=== PATIENT | female | born 1975 | race African-American/Black ===

== ENCOUNTER 2016-11-28 16:11 | Emergency (ER) | payer OTHER ==
[~2016-11-28] VITALS: Ht 157.5 cm; Wt 82.4 kg
[2016-11-28 16:46] LABS: EOSINOPHIL (%) 2.7 % (0-5); EOSINOPHIL COUNT 0.2 K/uL (0-0.3); HEMATOCRIT 34.6 % (36.0-46.0); IMMATURE GRANULOCYTE (%) 0.2 % (0.0-0.7); INSTRUMENT ABS NEUTROPHIL CT 2.7 K/uL; LYMPHOCYTE COUNT 2.1 K/uL (1.0-2.8); MCH 30.3 PG (29.0-34.0); MCHC 34.4 G/DL (30.0-36.0); MEAN PLAT.VOLUME 9.3 uM^3 (9.5-12.4); MONOCYTE COUNT 0.6 K/uL (0-0.8); NEUTROPHIL (%) 48.7 % (45-76); NEUTROPHIL COUNT 2.7 K/uL (1.8-6.4); PLATELET COUNT 311 K/uL (156-360); RBC DIS.WIDTH-CV 13.8 % (11.8-14.6); RBC DIS.WIDTH-SD 44.6 % (39-53); RED BLOOD COUNT 3.93 M/uL (3.80-5.20); WHITE BLOOD COUNT 5.5 K/uL (4.1-10.2)
[2016-11-28 16:53] LABS: INTER. NORMALIZED RATIO 1.3; PROTHROMBIN TIME 14.5 SEC (10.2-12.9)
[2016-11-28 16:55] LABS: CHLORIDE 105 mEq/L (99-109); SODIUM 140 mEq/L (136-147)
[2016-11-28 16:56] LABS: GLUCOSE 100 mg/dL (70-99); PTT 34.8 SEC (25-37)
[2016-11-28 16:58] LABS: ANION GAP 10 MEQ/L (2-14)
[2016-11-28 17:01] LABS: UREA NITROGEN (BUN) 7 mg/dL (9-23)
[2016-11-28 17:23] LABS: GFR ESTIMATE (CALCULATED) > 59 mL/min/
[2016-11-28 18:23] LABS: HDL CHOLESTEROL 44 MG/DL (Desirable>=50); LDL CHOLESTEROL 57 mg/dL (Desirable<100); NON-HDL CHOLESTEROL 68 mg/dL (Desirable<160); TOTAL CHOLESTEROL 112 mg/dL (Desirable<200); TRIGLYCERIDES 55 MG/DL (Normal: <150)
[2016-11-28 19:30] VITALS: BP 144/87
[2016-11-29 07:19] LABS: Estimated Average Glucose 108 mg/dL (70-123); HEMOGLOBIN A1c (GLYCOHEMOGLOB) 5.4 % HGB (Below 5.7)
== END 2016-11-28 19:36 | disposition home or self-care (01) ==
LOC: EME 16:11
PROVIDERS: Emergency Medicine
DX: G45.9 Transient cerebral ischemic attack, unspecified (principal); J45.909 Unspecified asthma, uncomplicated; F17.200 Nicotine dependence, unspecified, uncomplicated
CPT/HCPCS: 70450; 80048; 80061; 83036; 85025; 85610; 85730; 93005; 99281; 99285

== ENCOUNTER 2016-11-30 04:41 | Observation (INO) | payer OTHER ==
[~2016-11-30] VITALS: Ht 157.5 cm; Wt 79.5 kg
[2016-11-30 06:07] LABS: CREATININE 0.8 mg/dL (0.6-1.3); POTASSIUM 3.5 mEq/L (3.7-5.4)
[2016-11-30 06:11] LABS: EOSINOPHIL (%) 3.3 % (0-5); EOSINOPHIL COUNT 0.3 K/uL (0-0.3); HEMATOCRIT 35.5 % (36.0-46.0); IMMATURE GRANULOCYTE (%) 0.4 % (0.0-0.7); INSTRUMENT ABS NEUTROPHIL CT 4.1 K/uL; LYMPHOCYTE COUNT 2.5 K/uL (1.0-2.8); MCH 30.1 PG (29.0-34.0); MCHC 34.1 G/DL (30.0-36.0); MCV 88.3 FL (83-99); MEAN PLAT.VOLUME 9.5 uM^3 (9.5-12.4); MONOCYTE (%) 9.3 % (3-12); MONOCYTE COUNT 0.7 K/uL (0-0.8); NEUTROPHIL (%) 53.7 % (45-76); NEUTROPHIL COUNT 4.1 K/uL (1.8-6.4); PLATELET COUNT 317 K/uL (156-360); RBC DIS.WIDTH-CV 14.3 % (11.8-14.6); RBC DIS.WIDTH-SD 45.1 % (39-53); RED BLOOD COUNT 4.02 M/uL (3.80-5.20); WHITE BLOOD COUNT 7.6 K/uL (4.1-10.2)
[2016-11-30 06:17] LABS: INTER. NORMALIZED RATIO 1.1; PROTHROMBIN TIME 11.9 SEC (10.2-12.9)
[2016-11-30 06:19] LABS: PTT 30.3 SEC (25-37)
[2016-11-30 06:28] LABS: CHLORIDE 105 mEq/L (99-109); POTASSIUM 3.5 mEq/L (3.7-5.4); SODIUM 140 mEq/L (136-147)
[2016-11-30 06:30] LABS: GLUCOSE 106 mg/dL (70-99)
[2016-11-30 06:31] LABS: ANION GAP 13 MEQ/L (2-14); TROP-I INTERPRETATION NEGATIVE; TROPONIN-I < 0.01 ng/mL (0.0-0.30)
[2016-11-30 06:34] LABS: GFR ESTIMATE (CALCULATED) > 59 mL/min/
[2016-11-30 06:35] LABS: UREA NITROGEN (BUN) 13 mg/dL (9-23)
[2016-11-30 07:20] LABS: HDL CHOLESTEROL 45 MG/DL (Desirable>=50); LDL CHOLESTEROL 52 mg/dL (Desirable<100); NON-HDL CHOLESTEROL 61 mg/dL (Desirable<160); TOTAL CHOLESTEROL 106 mg/dL (Desirable<200); TRIGLYCERIDES 47 MG/DL (Normal: <150)
[2016-11-30 10:22] VITALS: BP 118/64
[2016-11-30 13:15] LABS: TROP-I INTERPRETATION NEGATIVE; TROPONIN-I 0.01 ng/mL (0.0-0.30)
[2016-11-30 15:54] VITALS: BP 126/79
[2016-11-30 19:37] LABS: TROP-I INTERPRETATION NEGATIVE; TROPONIN-I < 0.01 ng/mL (0.0-0.30)
[2016-11-30 20:00] VITALS: BP 133/83
[2016-12-01 00:41] VITALS: BP 122/72
[2016-12-01 03:24] VITALS: BP 127/69
[2016-12-01 05:57] LABS: ANION GAP 6 MEQ/L (2-14); CHLORIDE 110 MEQ/L (99-109); GFR ESTIMATE (CALCULATED) > 59 mL/min/; GLUCOSE 133 mg/dL (70-99); POTASSIUM 3.7 MEQ/L (3.7-5.4); SAMPLE HEMOLYSIS CHECK 0; SAMPLE ICTERIC CHECK 0; SAMPLE LIPEMIA CHECK 0; SODIUM 139 MEQ/L (136-147); UREA NITROGEN (BUN) 8 mg/dL (9-23)
[2016-12-01 08:43] VITALS: BP 122/62
[2016-12-01] MEDS ORDERED: NICOTINE PATCH1 EAC2 TD (09:51)
[2016-12-01] MEDS ORDERED: CLOPIDOGREL75 MG PO (09:51)
[2016-12-01] MEDS ORDERED: ATORVASTATIN CA40 MG PO (09:51)
== END 2016-12-01 13:51 | disposition home or self-care (01) ==
LOC: EME 04:41 → EDOF 07:59 → 5WEST 07:59 → EDOF 07:59 → ENRESERV 08:01 → 5WEST 10:08
PROVIDERS: Emergency Medicine; Internal Medicine; Psychiatry & Neurology Neurology
DX: G45.9 Transient cerebral ischemic attack, unspecified (principal); F17.200 Nicotine dependence, unspecified, uncomplicated; Z88.6 Allergy status to analgesic agent; Z82.3 Family history of stroke; J45.909 Unspecified asthma, uncomplicated; Z87.19 Personal history of other diseases of the digestive system
CPT/HCPCS: 70450; 70496; 70498; 70551; 80047; 80048; 80061; 84484; 85025; 85610; 85730; 86147 90; 93005; 93306; 99281; 99285; G0378; J1650; J7030

== ENCOUNTER → 2017-08-27 | Day surgery (SDC) | payer OTHER ==
[~2017-08-27] VITALS: Ht 157.5 cm; Wt 87.6 kg
[~2017-08-27] MED LIST: ATORVASTATIN CA40 MG PO; CLOPIDOGREL75 MG PO; HYDROCODON-ACE1 EAC7 PO; IBUPROFEN800 MG PO; NICOTINE PATCH1 EAC2 TD
[2017-08-27 01:11] LABS: APPEARANCE SL.HAZY ((CLEAR)); BILIRUBIN NEGATIVE; BLOOD LARGE; COLOR YELLOW ((YELLOW)); GLUCOSE (STRIP) NEGATIVE; KETONES NEGATIVE; LEUKOCYTES SMALL; NITRITE NEGATIVE; PROTEIN (STRIP) 100; SPECIFIC GRAVITY 1.026 (1.000-1.030); UROBILINOGEN 0.2 MG/DL (0.2-1.0)
[2017-08-27 01:31] LABS: RED BLOOD CELLS TNTC /HPF (0-5)
[2017-08-27 01:32] LABS: BACTERIA 1+ /HPF; EPITHELIAL CELLS 1+ /HPF; MUCUS NONE SEEN /LPF
[2017-08-27 02:33] LABS: BASOPHIL (%) 0.2 % (0-1); EOSINOPHIL (%) 1.6 % (0-5); EOSINOPHIL COUNT 0.1 K/uL (0-0.3); HEMATOCRIT 29.4 % (36.0-46.0); HEMOGLOBIN 10.3 G/DL (11.9-15.5); IMMATURE GRANULOCYTE (%) 0.2 % (0.0-0.7); LYMPHOCYTE (%) 31.7 % (15-42); LYMPHOCYTE COUNT 1.4 K/uL (1.0-2.8); MCH 31.1 PG (29.0-34.0); MCV 88.8 FL (83-99); MONOCYTE COUNT 0.3 K/uL (0-0.8); NEUTROPHIL (%) 60.3 % (45-76); NEUTROPHIL COUNT 2.7 K/uL (1.8-6.4); PLATELET COUNT 207 K/uL (156-360); RBC DIS.WIDTH-CV 13.8 % (11.8-14.6); RBC DIS.WIDTH-SD 45.1 % (39-53); RED BLOOD COUNT 3.31 M/uL (3.80-5.20); WHITE BLOOD COUNT 4.5 K/uL (4.1-10.2)
[2017-08-27 02:43] LABS: CHLORIDE 107 mEq/L (99-109); POTASSIUM 3.6 mEq/L (3.7-5.4); SODIUM 138 mEq/L (136-147)
[2017-08-27 02:45] LABS: GLUCOSE 105 mg/dL (70-99)
[2017-08-27 02:49] LABS: CREATININE 0.7 mg/dL (0.6-1.3); GFR ESTIMATE (CALCULATED) > 59 mL/min/
[2017-08-27 02:50] LABS: UREA NITROGEN (BUN) 10 mg/dL (9-23)
[2017-08-27 02:57] LABS: QUANTITATIVE HCG 13149.6 MIU/ML
[2017-08-27 06:16] VITALS: BP 122/77
== END | disposition home or self-care (01) ==
LOC: EME → EDBD 00:22 → EME 00:22 → SDC 06:17 → EME 06:17
PROVIDERS: Emergency Medicine
PROC: 10D17ZZ Extraction of Products of Conception, Retained, Via Natural or Artificial Opening (ICD-10-PCS; principal; 2017-08-27)
DX: O03.4 Incomplete spontaneous abortion without complication (principal); J45.909 Unspecified asthma, uncomplicated; Z86.73 Personal history of transient ischemic attack (TIA), and cerebral infarction without residual deficits; F17.200 Nicotine dependence, unspecified, uncomplicated; F12.90 Cannabis use, unspecified, uncomplicated; Z82.49 Family history of ischemic heart disease and other diseases of the circulatory system; Z83.3 Family history of diabetes mellitus; Z88.6 Allergy status to analgesic agent
CPT/HCPCS: 76801; 76856; 80048; 81003; 84702; 85025; 86900; 86901; 88305; 99281; 99285; J0330; J0690; J1100; J1885; J2250; J2405; J3010; J7030; J7120